=== PATIENT | male | born 1950 | race Caucasian/White ===

== ENCOUNTER 2019-05-24 16:42 | Emergency (ER) | payer MEDICARE, MEDICAID ==
[~2019-05-24] VITALS: Ht 172.7 cm; Wt 77.1 kg
[~2019-05-24 16:42] MED LIST: ASPI-605 PO; ATEN25TA PO; LOSA25TA3 PO; LOVA10TA PO
[2019-05-24 17:35] VITALS: BP 140/86
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
[2019-05-24] MEDS ORDERED: IBUPROFEN 600 MG TABLET PO ONE ×2 (18:00→18:05)
== END 2019-05-24 18:56 | disposition home or self-care (01) ==
LOC: ER 16:45
DX: S60.221A Contusion of right hand, initial encounter (principal); X58.XXXA Exposure to other specified factors, initial encounter; Y93.89 Activity, other specified; Y92.89 Other specified places as the place of occurrence of the external cause; Y99.8 Other external cause status; I10 Essential (primary) hypertension; I25.2 Old myocardial infarction; Z98.890 Other specified postprocedural states; Z79.82 Long term (current) use of aspirin; Z79.899 Other long term (current) drug therapy
CPT/HCPCS: 73130-TC